=== PATIENT | male | born 1975 | race Caucasian/White ===

== ENCOUNTER 2021-03-24 04:12 | Emergency (ER) | payer OTHER, SELFPAY ==
[2021-03-24 04:14] VITALS: BP 141/88; PULSE 86; RESP 18; TEMP 36.4; O2SAT 98; BMI 41.3
--- NOTE | 2021-03-24 04:42 | CT_ITS ---
STUDY: CT ABDOMEN AND PELVIS WITHOUT CONTRAST REASON FOR EXAM: Male, 45 years old. Flank pain RADIATION DOSAGE (If Supplied By Facility): CTDIvol = ( 22.72 ) mGy, DLP = ( 1294.45 ) mGycm TECHNIQUE: Transaxial images were obtained from the dome of the diaphragm to the symphysis pubis without oral contrast, and without intravenous contrast. Sagittal and coronal images were reconstructed. Individualized dose optimization techniques were used for this CT. COMPARISON: None. FINDINGS: The visualized lung bases are unremarkable. The visualized portions of the heart are within normal limits. Normal liver. Normal gallbladder and extrahepatic biliary system. Normal spleen. Normal pancreas. Normal bilateral adrenal glands. Normal right kidney. Normal left kidney. Normal visualized stomach. Normal small intestine. Normal colon. The appendix is visualized and appears normal. Normal abdominal aorta. Normal inferior vena cava. Normal retroperitoneum. No intra-abdominal free air. Normal urinary bladder. Normal visualized prostate gland. Normal abdominal wall. Normal osseous structures. CT/Abdomen/Pelvis without Cont IMPRESSION: Normal unenhanced CT of the abdomen and pelvis. Electronically Signed: Myles Hameed MD at 6:01 EDT , Service support ,
--- NOTE | 2021-03-24 04:44 | EDS_ITS ---
HPI History of Present Illness Chief Complaint: Flank Pain Informant: patient Onset/Context/Timing Onset: Days (3) Context: Gradual Onset Timing: Continuous Quality: Dull in spasms Location: Bilateral hips and flanks Worsened by: Bending forward Relieved by: Nothing Narrative Narrative: Patient presents with bilateral flank pain that has been getting worse over the past 3 days. Patient states it is gradually gotten worse. Patient states it became worse when he woke up this morning. Patient states the pain is worse on his left side than his right. Patient his pain is localized to both hips and flank areas. Patient describes the pain is dull with occasional spasms. Patient states it is worse with bending forward. Patient states nothing seems to help with it. Patient denies any dysuria or hematuria. PFSH PFS Medical History Bone spur Home Medications NK 03/24/21 [History Last Taken Unknown] naproxen 500 mg PO BID PRN #20 tab 03/24/21 [Rx Last Taken Unknown] Allergy/AdvReac Type Severity Reaction Status Date / Time azithromycin AdvReac Hives Verified 03/24/21 04:13 no surgical history Social History Smoking Status: Current every day smoker tobacco type: cigarettes ROS ROS ED Constitutional Constitutional ED: Denies chills or fever(s) Eyes Eyes: Denies blurry vision or change in vision ENT ENT ED: Denies rhinorrhea or sore throat Cardiovascular Cardiovascular: Denies chest pain or palpitations Respiratory/Chest Respiratory/Chest: Denies cough or dyspnea Gastrointestinal Gastrointestinal: Denies nausea or vomiting Genitourinary Genitourinary ED: Denies dysuria or hematuria Musculoskeletal Musculoskeletal: Reports back pain; Denies neck pain Integumentary Denies abscess or rash Neurologic Neurologic: Denies headache(s) or weakness Allergic/Immunologic Allergic/Immunologic ED: Denies mouth swelling or urticaria EXAM Physical Exam Const Vital Signs: 03/24/21 04:14 Temperature 97.6 F L Temperature Source Temporal Pulse Rate 86 Respiratory Rate 18 Blood Pressure 141/88 H Blood Pressure Mean 105 Pulse Ox 98 Oxygen Delivery Method Room Air Positive well nourished, well developed and obese General Appearance ED: well developed Nutritional Appearance: obese HEENT Reports moist mucous membranes Neck supple and no JVD Resp normal respiratory effort and clear to auscultation bilaterally Cardio regular rate and regular rhythm GI normal to inspection, nondistended, normoactive bowel sounds Palpation: soft and tender LUQ; Negative for guarding or rebound tenderness present Back/Spine General Back: CVA tenderness bilateral Neuro oriented x3, CN's II-XII intact bilaterally and no sensory deficits noted Sensorium / Orientation: alert Motor Exam: strength 5/5 throughout Psych mental status grossly normal MDM MDM MDM Narrative Medical decision making narrative: Patient was given IV fluids and Toradol here. CBC and comprehensive metabolic profile were within normal limits. Urinalysis was normal. CT scan of the abdomen pelvis was obtained. There is no acute intra-abdominal pathology. Patient is feeling better on reevaluation. Patient was given a prescription for Naprosyn. Patient was instructed to follow-up with his primary care physician in 5 to 7 days for further evaluation. Patient understood and was agreeable with the plan. All questions were answered. Lab Data Attestation: I reviewed the patient's lab results. Labs: Laboratory Results - last 24 hr 03/24/21 03/24/21 03/24/21 04:15 04:15 05:20 WBC 9.8 RBC 5.22 Hgb 16.2 Hct 47.7 MCV 91.4 MCH 31.0 MCHC 34.0 RDW Std Deviation 39.8 RDW Coeff of [place] 11.9 Plt Count 275 MPV 9.6 Immature Gran % (Auto) 0.500 Neut % (Auto) 58.4 Lymph % (Auto) 29.8 [place] % (Auto) 7.1 Eos % (Auto) 3.5 Baso % (Auto) 0.7 Absolute Neuts (auto) 5.7 Absolute Lymphs (auto) 2.91 Nucleated RBC % 0 Sodium 138 Potassium 4.2 Chloride 104 Carbon Dioxide 27.0 Anion Gap 7 BUN 16 Creatinine 1.05 Estim Creat Clear Calc 85.95 Est GFR (MDRD) Af Amer 98 Est GFR (MDRD) Non-Af 81 BUN/Creatinine Ratio 15.2 Glucose 103 Calcium 9.2 Total Bilirubin 0.20 AST 22 ALT 49 Alkaline Phosphatase 93 Total Protein 7.7 Albumin 3.5 Globulin 4.2 Albumin/Globulin Ratio 0.8 L Lipase 33 L Urine Color Yellow Urine Clarity Clear Urine pH 5.0 Ur Specific [place] 1.025 Urine Protein Negative Urine Glucose (UA) Normal Urine Ketones Negative Urine Occult Blood Negative Urine Nitrite Negative Urine Bilirubin Negative Urine Urobilinogen Normal Ur Leukocyte Esterase Negative Urine RBC 0 SEEN Urine WBC 0 SEEN Ur Squamous Epith Cells 0 SEEN Urine Bacteria RARE Urine Mucus 0 SEEN Radiography Diagnostic Testing: Radiology Impression Abdomen/Pelvis CT 03/24/21 04:42 IMPRESSION: Normal unenhanced CT of the abdomen and pelvis. Electronically Signed: Myles Hameed MD at 6:01 EDT , Service support , Discharge Plan Triage Chief Complaint: Flank Pain ED Provider: Leland Marcial Dx/Rx/DC Orders Clinical Impression: Acute low back pain Instructions: ED Back Pain (Acute or Chronic), ED Flank Pain, Uncertain Cause Prescriptions: New naproxen 500 MG tablet 500 mg PO BID PRN Qty: 20 RF: 0 No Action NK RF: 0 Primary Care Provider: Srinath Zendejas Referrals: Srinath Zendejas MD [Primary Care Provider] - 5-7 Days Disposition Disposition: Home, self care Discharge Date/Time: 03/24/21 06:59
[2021-03-24 04:53] LABS: Absolute Lymphocyte Count 2.91 X10^3/uL (0.83-4.51); Absolute Neutrophil Count 5.7 X10^3/uL (2.0-7.7); Basophil# 0.07 X10^3/uL; Basophil% 0.7 % (0-1); Eosinophil# 0.34 X10^3/uL; Eosinophils% 3.5 % (0-5); Hematocrit 47.7 % (40-54); Hemoglobin 16.2 g/dL (13.0-16.5); Lymphocyte # 2.91 X10^3/ul (0.83-4.51); Lymphocyte % 29.8 % (19-41); Mean Corpuscular Volume 91.4 fL (80-94); Mean Platelet Vol. 9.6 fl (6.2-12.0); Monocyte# 0.69 X10^3/uL; Monocyte% 7.1 % (0-10); NRBC Flagged by Analyzer 0 % (0-5); Neutrophil # 5.69 X10^3/uL (2.7-7.7); Neutrophil % 58.4 % (47-70); Platelet Count 275 K/mm3 (150-450); RBC Distribution Width CV 11.9 % (11.6-14.6); RBC Distribution Width SD 39.8 fl (35.1-43.9); Red Blood Count 5.22 M/mm3 (4.6-6.2); White Blood Count 9.8 K/mm3 (4.4-11.0)
[2021-03-24] MEDS: Ketorolac 30 MG/ML Syringe IV (05:03)
[2021-03-24] MEDS: 0.9% Normal Saline 1,000 ML 1000 ML IV (05:03)
[2021-03-24 05:08] LABS: ALB/GLOB Ratio 0.8 RATIO (0.9-2.4); AST(SGOT) 22 U/L (15-37); Alanine Aminotransfer ALT/SGPT 49 U/L (16-61); Albumin, Serum 3.5 g/dL (3.2-5.0); Alkaline Phosphatase 93 U/L (45-117); Anion Gap 7 (5-15); BUN 16 mg/dL (7-18); BUN/Creat Ratio 15.2 RATIO (10-20); Calcium,Total 9.2 mg/dL (8.5-10.1); Chloride 104 mmol/L (98-107); Creatinine, Serum 1.05 mg/dL (0.70-1.30); EST Glomerular Filtration Rate 81 mL/min (>60); Est Glom Filt Rate - Afr Amer 98 mL/min (>60); Estimated Creatinine Clearance 85.95 ml/min; Globulin 4.2 g/dL (2.2-4.2); Glucose 103 mg/dL (74-106); Lipase 33 U/L (73-393); Potassium 4.2 mmol/L (3.5-5.1); Protein, Total 7.7 g/dL (6.4-8.2); Sodium Level 138 mmol/L (136-145)
[2021-03-24 05:34] LABS: Mucous, Urine 0 SEEN /hpf (<or=2+); Red Blood Cells-Urine 0 SEEN /hpf (0-5); Squamous Epithelial Cells - UA 0 SEEN /hpf (0-5); White Blood Cells 0 SEEN /hpf (0-5)
[2021-03-24 06:02] LABS: Color, Urine Yellow (Yellow); Glucose, Dipstick Normal (Normal); Ketone-Dipstick Negative (Negative); Leukocyte Esterase-Dipstick Negative /ul (Negative); Nitrite-Dipstick Negative (Negative); Occult Blood-Urine Negative /ul (Negative); Protein-Dipstick Negative (Negative); Specific Gravity, Urine 1.025 (1.002-1.030); Urine Bilirubin Dipstick Negative (Negative); Urine Clarity Clear (Clear); Urine Urobilinogen Normal (Normal)
[2021-03-24 06:26] LABS: Bacteria RARE /hpf (None Seen)
== END 2021-03-24 06:59 | disposition home or self-care (01) ==
PROVIDERS: Emergency Provider Emergency Medicine; PCP Family Medicine
DX: M54.5 Low back pain (principal); E66.9 Obesity, unspecified; F17.210 Nicotine dependence, cigarettes, uncomplicated
CPT/HCPCS: 74176; 80053; 81001; 83690; 85025; 96361; 96374; 99283; J7030; A4216